=== PATIENT | male | born 1945 | race Caucasian/White ===

== ENCOUNTER 2016-04-26 17:00 | Inpatient (IN) | payer MEDICARE, OTHER ==
[~2016-04-26] VITALS: Ht 182.9 cm; Wt 65.3 kg
[2016-04-26 17:00] VITALS: BP 108/88; PULSE 82; TEMP 97.6
[2016-04-26 17:36] VITALS: BP 101/68; PULSE 83; TEMP 97.8
[2016-04-26] MEDS ORDERED: NORVASC 10MG10 MG PO (18:28)
[2016-04-26 18:29] LABS: BASO % 0.4 % (0.0-2.0); EOS # 0.1 (0.0-0.7); GRAN # 3.7 (1.4-6.5); GRAN % 73.9 % (42.2-75.2); LYMPH # 0.8 (1.2-3.4); LYMPH % 16.8 % (20.0-51.0); MEAN CELL VOLUME 89 fl (80.0-100.0); MEAN CORPUSCULAR HGB CONC 35 g/dl (33.0-37.0); MEAN PLATELET VOLUME 10.9 fl (7.4-10.4); MONO # 0.4 (0.1-0.6); MONO % 7.7 % (1.7-9.3); PLATELET COUNT 218 K/mm3 (130-400); RED BLOOD COUNT 3.52 M/mm3 (4.20-5.60); REDCELL DISTRIBUTION WIDTH-CV 12.6 % (11.5-14.5)
[2016-04-26] MEDS ORDERED: PRAVACHOL 40MG40 MG PO (18:29)
[2016-04-26] MEDS ORDERED: EFFEXOR XR37.5 MG/CA PO (18:30)
[2016-04-26] MEDS ORDERED: PRINZIDE 25 MG-1 TAB PO (18:30)
[2016-04-26 18:31] LABS: HEMATOCRIT 31.3 % (42.0-52.0); HEMOGLOBIN 10.9 g/dl (13.5-18.0); MEAN CORPUSCULAR HEMOGLOBIN 31 pg (27.0-31.0)
[2016-04-26] MEDS ORDERED: PROSCAR 5MG5 MG PO (18:32)
[2016-04-26] MEDS ORDERED: ASPIRIN 81M81 MG/TA2 PO (18:32)
[2016-04-26 18:39] LABS: PH 7 (5-8); SQUAMOUS EPITHELIAL None Seen /hpf; URINE APPEARANCE Cloudy; URINE BACTERIA None Seen /hpf; URINE BILIRUBIN Negative (NEGATIVE); URINE BLOOD 3+ (NEGATIVE); URINE COLOR Red; URINE GLUCOSE 1+ (NEGATIVE); URINE KETONE Trace (NEGATIVE); URINE RBC >50 /hpf; URINE UROBILINOGEN Negative (NEGATIVE); URINE WBC >50 /hpf
[2016-04-26 18:58] LABS: CREATININE, serum 10.65 mg/dL (0.66-1.25)
[2016-04-26 18:59] LABS: ADJUSTED CALCIUM 9.5 mg/dL (8.4-10.2); ALBUMIN 4.3 gm/dL (3.5-5.0); BILIRUBIN,TOTAL 1.1 mg/dL (0.0-1.0); CALCIUM 9.7 mg/dL (8.4-10.2); POTASSIUM 4.3 mmol/L (3.4-5.0); TOTAL PROTEIN 7.8 gm/dL (6.4-8.2)
[2016-04-26 19:58] VITALS: BP 135/87; PULSE 61; TEMP 97.8
[2016-04-26 22:50] LABS: POTASSIUM 3.9 mmol/L (3.4-5.0)
[2016-04-26 23:00] LABS: CREATININE, serum 10.17 mg/dL (0.66-1.25)
[2016-04-27] VITALS (7 sets, daily range): BP systolic 92–118; BP diastolic 50–101; PULSE 42–118; TEMP 97.5–98.5
[2016-04-27 07:29] LABS: BASO % 0.2 % (0.0-2.0); EOS % 0.8 % (0-4.0); GRAN # 3.8 (1.4-6.5); GRAN % 75.4 % (42.2-75.2); LYMPH # 0.7 (1.2-3.4); LYMPH % 14.8 % (20.0-51.0); MEAN CELL VOLUME 91 fl (80.0-100.0); MEAN CORPUSCULAR HGB CONC 34 g/dl (33.0-37.0); MEAN PLATELET VOLUME 11.1 fl (7.4-10.4); MONO # 0.4 (0.1-0.6); MONO % 8.6 % (1.7-9.3); PLATELET COUNT 183 K/mm3 (130-400); RED BLOOD COUNT 2.92 M/mm3 (4.20-5.60); REDCELL DISTRIBUTION WIDTH-CV 12.6 % (11.5-14.5)
[2016-04-27 07:32] LABS: HEMATOCRIT 26.5 % (42.0-52.0); HEMOGLOBIN 9.1 g/dl (13.5-18.0); MEAN CORPUSCULAR HEMOGLOBIN 31 pg (27.0-31.0)
[2016-04-27 07:33] LABS: ALBUMIN 3.2 gm/dL (3.5-5.0); CALCIUM 8.2 mg/dL (8.4-10.2); PHOSPHOROUS 6.8 mg/dL (2.5-4.5); POTASSIUM 4.2 mmol/L (3.4-5.0)
[2016-04-27 07:45] LABS: CREATININE, serum 9.02 mg/dL (0.66-1.25)
[2016-04-28 01:14] VITALS: BP 105/69; PULSE 92; TEMP 98.5
[2016-04-28 04:56] VITALS: BP 119/64; PULSE 81; TEMP 98.4
[2016-04-28 07:55] VITALS: BP 122/81; PULSE 87; TEMP 98.5
[2016-04-28 09:01] LABS: BASO % 0.4 % (0.0-2.0); EOS # 0.1 (0.0-0.7); EOS % 0.7 % (0-4.0); GRAN # 5.4 (1.4-6.5); LYMPH # 0.6 (1.2-3.4); LYMPH % 8.7 % (20.0-51.0); MEAN CELL VOLUME 91 fl (80.0-100.0); MEAN CORPUSCULAR HGB CONC 35 g/dl (33.0-37.0); MEAN PLATELET VOLUME 10.9 fl (7.4-10.4); MONO # 0.6 (0.1-0.6); MONO % 8.8 % (1.7-9.3); PLATELET COUNT 178 K/mm3 (130-400); REDCELL DISTRIBUTION WIDTH-CV 12.7 % (11.5-14.5); WHITE BLOOD COUNT 6.7 K/mm3 (4.8-10.8)
[2016-04-28 09:09] LABS: HEMATOCRIT 25.5 % (42.0-52.0); HEMOGLOBIN 8.8 g/dl (13.5-18.0); MEAN CORPUSCULAR HEMOGLOBIN 31 pg (27.0-31.0)
[2016-04-28 09:15] LABS: CALCIUM 7.8 mg/dL (8.4-10.2); PHOSPHOROUS 5.5 mg/dL (2.5-4.5); POTASSIUM 4.7 mmol/L (3.4-5.0)
[2016-04-28 09:17] LABS: CREATININE, serum 8.61 mg/dL (0.66-1.25)
[2016-04-28 11:58] VITALS: BP 117/80; PULSE 80; TEMP 98.6
[2016-04-28 16:21] VITALS: BP 142/78; PULSE 88; TEMP 98.5
[2016-04-28 23:35] VITALS: BP 129/62; BP 135/70; PULSE 65; TEMP 99.4
[2016-04-29] VITALS (9 sets, daily range): BP systolic 110–149; BP diastolic 67–79; PULSE 65–101; TEMP 97.7–100.1
[2016-04-29 07:46] LABS: ALBUMIN 2.4 gm/dL (3.5-5.0); CALCIUM 7.6 mg/dL (8.4-10.2); PHOSPHOROUS 5.3 mg/dL (2.5-4.5); POTASSIUM 4.9 mmol/L (3.4-5.0)
[2016-04-29 07:51] LABS: BASO % 0.1 % (0.0-2.0); EOS % 0.1 % (0-4.0); GRAN # 7.8 (1.4-6.5); GRAN % 84.9 % (42.2-75.2); MEAN CELL VOLUME 93 fl (80.0-100.0); MEAN CORPUSCULAR HGB CONC 33 g/dl (33.0-37.0); MONO # 0.8 (0.1-0.6); MONO % 8.4 % (1.7-9.3); PLATELET COUNT 157 K/mm3 (130-400); RED BLOOD COUNT 2.41 M/mm3 (4.20-5.60); REDCELL DISTRIBUTION WIDTH-CV 13.1 % (11.5-14.5); WHITE BLOOD COUNT 9.2 K/mm3 (4.8-10.8)
[2016-04-29 07:57] LABS: HEMATOCRIT 22.5 % (42.0-52.0); HEMOGLOBIN 7.5 g/dl (13.5-18.0); LYMPH # 0.6 (1.2-3.4); MEAN CORPUSCULAR HEMOGLOBIN 31 pg (27.0-31.0)
[2016-04-29 08:58] LABS: CREATININE, serum 9.03 mg/dL (0.66-1.25)
[2016-04-29 22:39] LABS: HEMOGLOBIN 7.8 g/dl (13.5-18.0)
[2016-04-30 01:23] VITALS: BP 104/59; PULSE 68; TEMP 98.1
[2016-04-30 05:03] VITALS: BP 132/67; PULSE 83; TEMP 98.6
[2016-04-30 07:17] LABS: BASO % 0.1 % (0.0-2.0); EOS % 0.2 % (0-4.0); GRAN # 10.9 (1.4-6.5); GRAN % 87.5 % (42.2-75.2); LYMPH # 0.6 (1.2-3.4); LYMPH % 4.8 % (20.0-51.0); MEAN CELL VOLUME 94 fl (80.0-100.0); MEAN CORPUSCULAR HGB CONC 33 g/dl (33.0-37.0); MEAN PLATELET VOLUME 10.9 fl (7.4-10.4); MONO # 0.9 (0.1-0.6); MONO % 6.8 % (1.7-9.3); PLATELET COUNT 137 K/mm3 (130-400); RED BLOOD COUNT 2.58 M/mm3 (4.20-5.60); REDCELL DISTRIBUTION WIDTH-CV 13.4 % (11.5-14.5); WHITE BLOOD COUNT 12.4 K/mm3 (4.8-10.8)
[2016-04-30 07:19] LABS: HEMATOCRIT 24.3 % (42.0-52.0); MEAN CORPUSCULAR HEMOGLOBIN 31 pg (27.0-31.0)
[2016-04-30 07:30] LABS: ALBUMIN 2.2 gm/dL (3.5-5.0); CALCIUM 7.4 mg/dL (8.4-10.2); PHOSPHOROUS 6.4 mg/dL (2.5-4.5); POTASSIUM 5.3 mmol/L (3.4-5.0)
[2016-04-30 07:33] LABS: CREATININE, serum 10.17 mg/dL (0.66-1.25)
[2016-04-30 07:54] VITALS: BP 106/55; PULSE 98
[2016-04-30 12:20] VITALS: BP 106/56; PULSE 89; TEMP 98.2
[2016-04-30 15:20] VITALS: BP 124/72; PULSE 81; TEMP 98.5
[2016-04-30 16:28] VITALS: BP 124/72; PULSE 81; TEMP 98.5
== END 2016-04-30 18:57 | disposition short-term general hospital (02) | DRG 682 ==
LOC: MEDICAL 17:00
PROVIDERS: Internal Medicine; Internal Medicine Nephrology
DX: N17.9 Acute kidney failure, unspecified (principal); E43 Unspecified severe protein-calorie malnutrition; Z68.1 Body mass index [BMI] 19.9 or less, adult; N32.0 Bladder-neck obstruction; E87.5 Hyperkalemia; I10 Essential (primary) hypertension; Z87.891 Personal history of nicotine dependence; N40.1 Benign prostatic hyperplasia with lower urinary tract symptoms; R31.0 Gross hematuria; R33.8 Other retention of urine; D64.9 Anemia, unspecified
CPT/HCPCS: G0103; J0882; J1644; J2405; J2916; J7030; P9016

== ENCOUNTER → 2016-04-26 | Outpatient (REF) ==
[~2016-04-26] MED LIST: ASPIRIN 81M81 MG/TA2 PO; EFFEXOR XR37.5 MG/CA PO; NORVASC 10MG10 MG PO; PRAVACHOL 40MG40 MG PO; PRINZIDE 25 MG-1 TAB PO; PROSCAR 5MG5 MG PO
[2016-04-26 15:57] LABS: THYROID STIMULATING HORMONE 2.15 uIU/mL (0.465-4.680)
== END ==
LOC: ZLAB.WCH 15:12
PROVIDERS: Nurse Practitioner Family
DX: Z01.89 Encounter for other specified special examinations (principal)

== ENCOUNTER → 2016-05-30 | Outpatient (REF) | LOC: ZLAB.WCH 12:18 | DX: Z01.89 Encounter for other specified special examinations (principal) ==

== ENCOUNTER → 2016-12-06 | Outpatient (REF) | LOC: ZLAB.WCH 14:46 | DX: Z01.89 Encounter for other specified special examinations (principal) | CPT/HCPCS: G0103 ==

== ENCOUNTER → 2017-09-01 | Outpatient (REF) | LOC: ZLAB.WCH 16:18 | DX: Z01.89 Encounter for other specified special examinations (principal) | CPT/HCPCS: G0103 ==